=== PATIENT | female | born 1945 | race Caucasian/White ===

== ENCOUNTER → 2016-12-15 | Outpatient (CLI) | payer MEDICARE, OTHER ==
[~2016-12-15] MED LIST: ACYC-113 PO; ALBU8.5H5 INH; ASPI325T4 PO; FLUT10.6 INH; FURO-93 PO; GUAI200T3 PO; HYDR-3138 PO; LIDOCAINE 1%, 20ML ONE; METH500T97 PO; MORP15TA39 PO; ONDA4TAB10 PO; SPIR25TA3 PO
== END | disposition home or self-care (01) ==
LOC: RAD 12:47
PROVIDERS: ATTEND Orthopaedic Surgery
DX: S72.034D Nondisplaced midcervical fracture of right femur, subsequent encounter for closed fracture with routine healing (principal); M81.0 Age-related osteoporosis without current pathological fracture; X58.XXXD Exposure to other specified factors, subsequent encounter
CPT/HCPCS: 20610; 77002; J3490

== ENCOUNTER → 2017-01-02 | Outpatient (CLI) | payer MEDICARE, OTHER ==
[~2017-01-02] MED LIST changes: -LIDOCAINE 1%, 20ML ONE; +hydrocodone PO
[2017-01-02 13:19] LABS: ASPARTATE AMINO TRANSFERASE 41 U/L (15-37); BLOOD UREA NITROGEN 9 mg/dL (7-18)
[2017-01-02 14:18] LABS: DIFF TOTAL CELLS COUNTED 100 CELL DIFF
[2017-01-02 14:23] LABS: VERIFY COUNTS? YES
[2017-01-02 14:24] LABS: ANISOCYTOSIS 1+
== END | disposition home or self-care (01) ==
LOC: STAR 11:30
PROVIDERS: ATTEND Orthopaedic Surgery
DX: S72.034D Nondisplaced midcervical fracture of right femur, subsequent encounter for closed fracture with routine healing (principal); M81.0 Age-related osteoporosis without current pathological fracture; M65.30 Trigger finger, unspecified finger; M25.519 Pain in unspecified shoulder; X58.XXXD Exposure to other specified factors, subsequent encounter
CPT/HCPCS: 36415; 80053; 81003; 85025; 87081

== ENCOUNTER → 2017-01-06 | Outpatient (CLI) | payer MEDICARE, OTHER ==
[~2017-01-06] VITALS: Ht 149.9 cm; Wt 39.0 kg
[~2017-01-06] MED LIST changes: +EPINEPHRINE 1 MG/ML, 1ML ONE; +HYDROCODONE PO; +KETOROLAC 60 MG/2 ML ONE; +LACTATED RINGERS 1,000 ML IV SCH; +MORPHINE SULFATE 4 MG/ML, 1ML ONE; +ROPIvacaine/PF 0.2%, 20 ML ONE; +SCOPOLAMINE PATCH, 1.5MG PATCH.TD72 TD STA; +TRANEXAMIC ACID 100 MG/ML, 10ML ONE; +URSO250T9 PO; +VANCOMYCIN 800 MG in SODIUM CHLORIDE 0.9% 100 ML IV ONE; +VANCOMYCIN PER PHARMACY MC STA
[2017-01-06 08:49] VITALS: BP 93/62
== END | disposition home or self-care (01) ==
LOC: UNDOADMIN 08:17 → OR 08:17 → ORIP 08:17 → EDSTATUS 10:00 → UNDODISIN 10:34
PROVIDERS: ATTEND Orthopaedic Surgery
DX: Z01.812 Encounter for preprocedural laboratory examination (principal); M25.551 Pain in right hip; L98.8 Other specified disorders of the skin and subcutaneous tissue; Z53.09 Procedure and treatment not carried out because of other contraindication
CPT/HCPCS: 36415; 85610; 85730; 86850; 86900; J7120; J0171; J1885; J2795

== ENCOUNTER 2017-01-13 05:41 | Inpatient (IN) | payer MEDICARE, OTHER ==
[~2017-01-13] VITALS: Ht 149.9 cm; Wt 48.5 kg
[~2017-01-13 05:41] MED LIST changes: -EPINEPHRINE 1 MG/ML, 1ML ONE; -HYDROCODONE PO; -KETOROLAC 60 MG/2 ML ONE; -LACTATED RINGERS 1,000 ML IV SCH; -MORPHINE SULFATE 4 MG/ML, 1ML ONE; -ROPIvacaine/PF 0.2%, 20 ML ONE; -SCOPOLAMINE PATCH, 1.5MG PATCH.TD72 TD STA; -TRANEXAMIC ACID 100 MG/ML, 10ML ONE; -VANCOMYCIN 800 MG in SODIUM CHLORIDE 0.9% 100 ML IV ONE; -VANCOMYCIN PER PHARMACY MC STA
[2017-01-13 06:13] VITALS: BP 104/67
[2017-01-13] MEDS ORDERED: LACTATED RINGERS 1,000 ML IV SCH (06:13)
[2017-01-13] MEDS ORDERED: VANCOMYCIN PER PHARMACY MC STA (06:16)
[2017-01-13] MEDS ORDERED: SCOPOLAMINE PATCH, 1.5MG PATCH.TD72 TD ONE ×2 (06:23→06:30)
[2017-01-13] MEDS ORDERED: ROPIvacaine/PF 0.2%, 20 ML ONE (06:28)
[2017-01-13] MEDS ORDERED: KETOROLAC 60 MG/2 ML ONE (06:28)
[2017-01-13] MEDS ORDERED: NEOSPORIN OINT, 15GM ONE (06:28)
[2017-01-13] MEDS ORDERED: morphine SULFATE/PF 1 MG/ML, 10ML ONE (06:28)
[2017-01-13] MEDS ORDERED: TRANEXAMIC ACID 100 MG/ML, 10ML ONE (06:28)
[2017-01-13] MEDS ORDERED: EPINEPHRINE 1 MG/ML, 1ML ONE (06:29)
[2017-01-13] MEDS ORDERED: VANCOMYCIN 800 MG in SODIUM CHLORIDE 0.9% 100 ML IV ONE (06:30)
[2017-01-13] MEDS ORDERED: HYDROCODONE PO (07:02)
[2017-01-13] MEDS ORDERED: NEOSTIGMINE 1 MG/ML, 10ML ONE (07:31)
[2017-01-13] MEDS ORDERED: CEFAZOLIN 1,000 MG ONE (07:31)
[2017-01-13] MEDS ORDERED: ROCURONIUM 10 MG/ML ONE (07:31)
[2017-01-13] MEDS ORDERED: PROPOFOL 10 MG/ML, 20ML ONE (07:31)
[2017-01-13] MEDS ORDERED: GLYCOPYRROLATE 0.2MG/1ML ONE (07:31)
[2017-01-13] MEDS ORDERED: PHENYLEPHRINE 10 MG/ML ONE ×2 (07:31→11:18)
[2017-01-13] MEDS ORDERED: ONDANSETRON 2MG/ML, 2ML ONE (07:31)
[2017-01-13] MEDS ORDERED: FENTANYL PF 100 MCG/2ML ONE ×2 (07:36→11:18)
[2017-01-13] MEDS ORDERED: MIDAZOLAM 1 MG/ML, 2ML ONE (07:36)
[2017-01-13] MEDS ORDERED: BUPIVACAINE/PF-EPI 0.5% 1:200K ONE (08:33)
[2017-01-13] MEDS ORDERED: BUPIVACAINE/PF-EPI 0.5% 1:200K INFIL ONE (08:34)
[2017-01-13] MEDS ORDERED: MIDAZOLAM 1 MG/ML, 2ML IV PRN (09:00)
[2017-01-13] MEDS ORDERED: OXYcodone 5 MG/5 ML ORAL.SOL UDC PO PRN (09:00)
[2017-01-13] MEDS ORDERED: ONDANSETRON 2MG/ML, 2ML IVPush PRN (09:00)
[2017-01-13] MEDS ORDERED: LABETALOL 5MG/ML, 20ML IV PRN (09:00)
[2017-01-13] MEDS ORDERED: hydrALAzine 20 MG/ML, 1ML IV PRN (09:00)
[2017-01-13] MEDS ORDERED: TRANEXAMIC ACID 1,000 MG in SODIUM CHLORIDE 0.9% 100 ML IVPB ONE (11:00)
[2017-01-13] MEDS ORDERED: ONDANSETRON 4 MG TABLET PO PRN (11:00)
[2017-01-13] MEDS ORDERED: ONDANSETRON 2MG/ML, 2ML IV PRN (11:00)
[2017-01-13] MEDS ORDERED: SENNA/DOCUSATE TABLET PO PRN (11:00)
[2017-01-13] MEDS ORDERED: MAGNESIUM HYDROXIDE 8%, 30ML UDC PO PRN (11:00)
[2017-01-13] MEDS ORDERED: SCOPOLAMINE PATCH, 1.5MG PATCH.TD72 TD SCH (11:00)
[2017-01-13] MEDS ORDERED: BISACODYL 10 MG SUPP PR PRN (11:00)
[2017-01-13] MEDS ORDERED: PROMETHAZINE 12.5 MG SUPP PR PRN (11:00)
[2017-01-13] MEDS: FENTANYL PF 100 MCG/2ML IV PRN ×5 (11:20→12:37)
[2017-01-13] MEDS ORDERED: PHENYLEPHRINE 10 MG in SODIUM CHLORIDE 0.9% 249 ML IV PRN (11:30)
[2017-01-13] MEDS ORDERED: ALBUTEROL SULFATE 2.5 MG/3 ML NPPB PRN ×2 (12:30→22:30)
[2017-01-13] MEDS ORDERED: HYDROmorphone 2 MG/ML, 1ML ONE (12:49)
[2017-01-13] MEDS: HYDROmorphone 1 MG/ML, 1ML IV PRN ×4 (12:56→13:57)
[2017-01-13] MEDS ORDERED: ALBUMIN HUMAN 5% 500 ML ONE (13:40)
[2017-01-13] MEDS ORDERED: ALBUMIN HUMAN 5% 500 ML IV ONE (14:00)
[2017-01-13] MEDS ORDERED: OXYcodone 5 MG/5 ML ORAL.SOL UDC ONE (14:22)
[2017-01-13] MEDS ORDERED: METHOCARBAMOL IV ONE (15:00)
[2017-01-13] MEDS ORDERED: DEXTROSE 5% IV ONE (15:00)
[2017-01-13 17:00] VITALS: BP 86/52
[2017-01-13] MEDS: CEFAZOLIN PMX 1GM/50ML 50 ML IVPB SCH (19:54)
[2017-01-13] MEDS: D5%-0.45% NACL 1,000 ML IV SCH ×2 (19:55→22:39)
[2017-01-13] MEDS: ASPIRIN 325 MG TABLET EC PO SCH (19:55)
[2017-01-13 20:00] VITALS: BP 95/62
[2017-01-13] MEDS: DOCUSATE 100 MG CAPSULE PO SCH (21:00)
[2017-01-13 23:40] VITALS: BP 94/59
[2017-01-14] VITALS (9 sets, daily range): BP systolic 90–107; BP diastolic 55–73
[2017-01-14] MEDS: CEFAZOLIN PMX 1GM/50ML 50 ML IVPB SCH (01:09)
[2017-01-14] MEDS: HYDROmorphone 1 MG/ML, 1ML IV PRN ×4 (03:08→14:34)
[2017-01-14] MEDS: ASPIRIN 325 MG TABLET EC PO SCH ×2 (06:50→18:37)
[2017-01-14 07:57] LABS: ASPARTATE AMINO TRANSFERASE 33 U/L (15-37); BLOOD UREA NITROGEN 17 mg/dL (7-18)
[2017-01-14] MEDS: DOCUSATE 100 MG CAPSULE PO SCH ×2 (09:03→20:33)
[2017-01-14] MEDS: FUROSEMIDE 20 MG/2 ML IV PRN ×2 (14:26→16:05)
[2017-01-14] MEDS: HYDROCODONE 5 MG HOMEMEDPO PRN (14:26)
[2017-01-14] MEDS: D5%-0.45% NACL 1,000 ML IV SCH (14:27)
[2017-01-14] MEDS ORDERED: MAGNESIUM SULFATE PMX 4GM/100M 100 ML IV ONE (16:00)
[2017-01-14] MEDS ORDERED: POTASSIUM PHOSPHATE 22 MEQ in SODIUM CHLORIDE 0.9% 500 ML IV ONE (16:00)
[2017-01-14] MEDS: CEFTRIAXONE 1,000 MG in SODIUM CHLORIDE 0.9% 50 ML IV SCH (16:47)
[2017-01-14] MEDS: OXYcodone IR 5MG TABLET PO PRN (22:24)
[2017-01-15 01:38] VITALS: BP 104/63
[2017-01-15] MEDS: D5%-0.45% NACL 1,000 ML IV SCH ×2 (02:31→15:51)
[2017-01-15] MEDS: OXYcodone IR 5MG TABLET PO PRN (04:47)
[2017-01-15] MEDS: ASPIRIN 325 MG TABLET EC PO SCH ×2 (06:00→18:26)
[2017-01-15 06:22] LABS: ASPARTATE AMINO TRANSFERASE 42 U/L (15-37); BLOOD UREA NITROGEN 20 mg/dL (7-18)
[2017-01-15] MEDS ORDERED: SODIUM CHLORIDE 0.9% 1,000 ML IV SCH (06:30)
[2017-01-15 06:47] VITALS: BP 95/60
[2017-01-15] MEDS: DOCUSATE 100 MG CAPSULE PO SCH ×2 (10:28→22:30)
[2017-01-15] MEDS: HYDROCODONE 5 MG HOMEMEDPO PRN (10:28)
[2017-01-15] MEDS ORDERED: HYDROCODONE 5 MG HOMEMEDPO PRN (11:00)
[2017-01-15] MEDS ORDERED: POTASSIUM PHOSPHATE 22 MEQ in SODIUM CHLORIDE 0.9% 500 ML IV ONE (12:30)
[2017-01-15] MEDS: HYDROmorphone 1 MG/ML, 1ML IV PRN (13:40)
[2017-01-15 14:55] VITALS: BP 95/58
[2017-01-15] MEDS: CEFTRIAXONE 1,000 MG in SODIUM CHLORIDE 0.9% 50 ML IV SCH (16:54)
[2017-01-15] MEDS: HYDROCODONE HOMEMEDPO PRN (18:27)
[2017-01-15 18:30] VITALS: BP 95/53
[2017-01-15] MEDS: SODIUM CHLORIDE 0.9% 1,000 ML IV SCH (22:30)
[2017-01-16 01:29] VITALS: BP 98/50
[2017-01-16] MEDS: HYDROCODONE HOMEMEDPO PRN ×5 (02:26→21:50)
[2017-01-16 05:01] LABS: ASPARTATE AMINO TRANSFERASE 37 U/L (15-37); BLOOD UREA NITROGEN 16 mg/dL (7-18)
[2017-01-16] MEDS: ASPIRIN 325 MG TABLET EC PO SCH ×2 (05:28→17:57)
[2017-01-16] MEDS: SODIUM CHLORIDE 0.9% 1,000 ML IV SCH (05:31)
[2017-01-16 06:45] VITALS: BP 97/58
[2017-01-16] MEDS: SPIRONOLACTONE 50 MG TABLET PO SCH ×2 (11:41→21:47)
[2017-01-16] MEDS: DOCUSATE 100 MG CAPSULE PO SCH ×2 (11:41→21:48)
[2017-01-16] MEDS: FUROSEMIDE 40 MG TABLET PO SCH (11:41)
[2017-01-16] MEDS: HYDROmorphone 1 MG/ML, 1ML IV PRN (13:16)
[2017-01-16 15:39] VITALS: BP 90/50
[2017-01-16] MEDS: CEFTRIAXONE 1,000 MG in SODIUM CHLORIDE 0.9% 50 ML IV SCH (16:13)
[2017-01-16] MEDS: POTASSIUM PHOSPHATE 44 MEQ in SODIUM CHLORIDE 0.9% 500 ML IV SCH (17:57)
[2017-01-16 20:10] VITALS: BP 95/57
[2017-01-17] MEDS: SODIUM CHLORIDE 0.9% 1,000 ML IV SCH ×2 (00:40→13:08)
[2017-01-17] MEDS: POTASSIUM PHOSPHATE 44 MEQ in SODIUM CHLORIDE 0.9% 500 ML IV SCH (01:47)
[2017-01-17 02:48] VITALS: BP 93/52
[2017-01-17] MEDS: HYDROmorphone 1 MG/ML, 1ML IV PRN ×2 (03:13→08:41)
[2017-01-17] MEDS: HYDROCODONE HOMEMEDPO PRN ×2 (05:55→12:04)
[2017-01-17] MEDS: ASPIRIN 325 MG TABLET EC PO SCH (05:55)
[2017-01-17 06:25] LABS: BLOOD UREA NITROGEN 13 mg/dL (7-18)
[2017-01-17 06:44] LABS: DIFF TOTAL CELLS COUNTED 100 CELL DIFF
[2017-01-17 06:45] LABS: ANISOCYTOSIS 1+; VERIFY COUNTS? YES
[2017-01-17 06:46] LABS: POLYCHROMASIA 1+
[2017-01-17 07:07] VITALS: BP 94/57
[2017-01-17] MEDS: SPIRONOLACTONE 50 MG TABLET PO SCH (08:41)
[2017-01-17] MEDS: DOCUSATE 100 MG CAPSULE PO SCH (08:41)
[2017-01-17] MEDS: FUROSEMIDE 40 MG TABLET PO SCH (08:42)
[2017-01-17] MEDS ORDERED: FUROSEMIDE 20 MG/2 ML IV ONE (14:30)
[2017-01-17] MEDS ORDERED: OXYC5CAP4 PO (14:30)
[2017-01-17] MEDS ORDERED: ASPI-650 PO (14:31)
[2017-01-17 16:01] VITALS: BP 91/50
== END 2017-01-17 17:06 | disposition home health service (06) | DRG 469 ==
LOC: ORIP 05:41 → 4NOR 17:02
PROVIDERS: ADMIT Orthopaedic Surgery; ATTEND Orthopaedic Surgery
PROC: 0SPB04Z Removal of Internal Fixation Device from Left Hip Joint, Open Approach (ICD-10-PCS; 2017-01-13)
PROC: 0SR902A Replacement of Right Hip Joint with Metal on Polyethylene Synthetic Substitute, Uncemented, Open Approach (ICD-10-PCS; principal; 2017-01-13 07:30)
PROC: 30233N1 Transfusion of Nonautologous Red Blood Cells into Peripheral Vein, Percutaneous Approach (ICD-10-PCS; 2017-01-14)
DX: T84.124A Displacement of internal fixation device of right femur, initial encounter (principal); E43 Unspecified severe protein-calorie malnutrition; A41.9 Sepsis, unspecified organism; D62 Acute posthemorrhagic anemia; I85.10 Secondary esophageal varices without bleeding; N39.0 Urinary tract infection, site not specified; B19.20 Unspecified viral hepatitis C without hepatic coma; E83.39 Other disorders of phosphorus metabolism; E83.42 Hypomagnesemia; I95.81 Postprocedural hypotension; J44.9 Chronic obstructive pulmonary disease, unspecified; K21.9 Gastro-esophageal reflux disease without esophagitis; K74.60 Unspecified cirrhosis of liver; M81.0 Age-related osteoporosis without current pathological fracture; Z80.7 Family history of other malignant neoplasms of lymphoid, hematopoietic and related tissues; Z82.49 Family history of ischemic heart disease and other diseases of the circulatory system; Z87.891 Personal history of nicotine dependence; Z91.012 Allergy to eggs; Z90.710 Acquired absence of both cervix and uterus; Z88.8 Allergy status to other drugs, medicaments and biological substances; Z91.011 Allergy to milk products; Z88.2 Allergy status to sulfonamides; Z96.641 Presence of right artificial hip joint
CPT/HCPCS: 36415; 71010; 80048; 80053; 81001; 83735; 84100; 85025; 86850; 86900; 86923; 87040; 87086; 94640; C1713; J0171; J0690; J0696; J1170; J1885; J2250; J2274; J2405; J2704; J2710; J2795; J3010; J3370; J3490; J7613; P9045; Q0162; C1776; J1940; J2370; J2800; J3475; J7030; J7040; J7050; J7120; P9016

== ENCOUNTER 2017-01-22 16:23 | Emergency (ER) | payer MEDICARE, OTHER ==
[~2017-01-22] VITALS: Ht 149.9 cm; Wt 44.0 kg
[2017-01-22] MEDS ORDERED: SODIUM CHLORIDE FLUSH 10ML SYR IVF ONE (17:30)
[2017-01-22 17:57] LABS: BLOOD UREA NITROGEN 10 mg/dL (7-18)
[2017-01-22 18:01] LABS: IS PT STATUS REG ER OR PRE ER? YES
[2017-01-22] MEDS ORDERED: OMNIPAQUE 350 MG/ML, 100ML BOTTLE ONE (19:07)
[2017-01-22] MEDS ORDERED: OXYcodone IR 5MG TABLET ONE (21:08)
[2017-01-22] MEDS ORDERED: OXYcodone IR 5MG TABLET PO ONE (21:30)
[2017-01-22 21:33] VITALS: BP 93/62
== END 2017-01-22 22:02 | disposition home or self-care (01) ==
LOC: ED 19:46
DX: R09.02 Hypoxemia (principal); M54.30 Sciatica, unspecified side; Z88.2 Allergy status to sulfonamides; Z88.5 Allergy status to narcotic agent; Z87.891 Personal history of nicotine dependence
CPT/HCPCS: 36415; 36556; 71275; 80048; 82040; 83880; 84484; 85025; 93005; 99285; Q9967

== ENCOUNTER → 2017-01-22 | Outpatient (CLI) | payer MEDICARE, OTHER ==
[~2017-01-22] MED LIST changes: +ASPI-650 PO; +HYDROCODONE PO; +OXYC5CAP4 PO
== END | disposition home or self-care (01) ==
LOC: RAD 14:07
PROVIDERS: ATTEND Family Medicine
DX: R22.42 Localized swelling, mass and lump, left lower limb (principal)
CPT/HCPCS: 93970

== ENCOUNTER → 2017-03-02 | Outpatient (CLI) | payer MEDICARE, OTHER ==
[~2017-03-02] MED LIST changes: +LIDOCAINE 1%, 20ML ONE; +MORP-52 PO; -MORP15TA39 PO
== END | disposition home or self-care (01) ==
LOC: RAD 15:13
PROVIDERS: ATTEND Internal Medicine Gastroenterology
DX: R18.8 Other ascites (principal); K74.60 Unspecified cirrhosis of liver
CPT/HCPCS: 49083; J3490

== ENCOUNTER → 2017-03-10 | Outpatient (CLI) | payer MEDICARE, OTHER ==
[~2017-03-10] MED LIST changes: -LIDOCAINE 1%, 20ML ONE
== END | disposition home or self-care (01) ==
LOC: CFH 15:45
PROVIDERS: ATTEND Internal Medicine Gastroenterology
DX: R60.0 Localized edema (principal); K74.60 Unspecified cirrhosis of liver; I85.00 Esophageal varices without bleeding; K59.8 Other specified functional intestinal disorders; L29.9 Pruritus, unspecified; R53.83 Other fatigue
CPT/HCPCS: 93970